=== PATIENT | male | born 1975 | race Caucasian/White ===

== ENCOUNTER 2018-02-24 06:41 | Day surgery (SDC) | payer OTHER, SELFPAY ==
--- NOTE | 2018-02-24 | PATH_ITS ---
[facility] Accession Number: [id number] . 01 Material submitted: . ESOPHAGEAL STRICTURE . 02 Diagnosis: Esophagus, Stricture, Biopsy: Squamocolumnar junctinal mucosa with reflux-related changes. Negative for intestinal metaplasia by alcian blue stain. Intraepithelial eosinophils are not increased. Negative for dysplasia and malignancy. [facility]/02/28/2018 . 02 Electronically signed: . Debby Johnson MD, Pathologist NPI- [id number] . 01 Gross description: . Received one formalin-filled container, labeled with the patient's name, labeled esophageal stricture. The specimen consists of three 0.1-0.3 cm portions of tissue, entirely submitted in one cassette. ([id number]) /FRR . 02 Microscopic: . An AB/PAS stain was performed to evaluate for intestinal metaplasia and is negative. A control stain showed appropriate reactivity. . 02 Pathologist provided ICD-10: K21.0 . 02 CPT . 936619, 312393 Performed at: 01 [facility] [address] [place] [address], [place], [place] [id number] MD Salty Joseph MD Phone: [phone] Performed at: 02 [facility] [address] [place], [place] [id number] MD Parker Kim MD Phone: [phone]
[2018-02-24 07:05] VITALS: BP 124/83; PULSE 64; RESP 15; TEMP 36.3; O2SAT 99; BMI 26.0
[2018-02-24] MEDS: SODIUM CHLORIDE 0.9% 1,000 ML 200 ML IV (07:30)
--- NOTE | 2018-02-24 08:09 | PM.PREOP ---
Pre-operative Note Interval Note Pre-op Check: History & Physical Reviewed by Physician and Exam Performed ASA Class (for procedural sedation): I
[2018-02-24] MEDS: TETRACAINE/BENZOCAINE/BUTAMBEN (CETACAINE) BOTTLE 1 SPRAY TOP (08:13)
[2018-02-24] MEDS: LIDOCAINE 4% SOLN 50 ML 20 ML TOP (08:14)
--- NOTE | 2018-02-24 08:16 | SUR.OPER ---
to endo from opd via cart respirations unlabored iv patent positioned per self for procudure
[2018-02-24] MEDS: fentaNYL 250 MCG/5 ML INJ 150 MCG IV (08:41)
[2018-02-24] MEDS: MIDAZOLAM 5 MG/5 ML VIAL 4 MG IV (08:41)
--- NOTE | 2018-02-24 08:41 | PM.OP.ENDO ---
Operative Date/Time/Diagnoses - Date of procedure: 02/24/18 Time of procedure: 08:41 Pre-op diagnosis: Dysphagia. History of stricture Post-op diagnosis: same (Stricture at GE junction at 39 cm) Procedure & Clinicians Study performed: EGD with through the scope balloon dilatation and cold biopsy Same procedure as scheduled: Yes Indications: Dysphagia recurrence Procedure Notes SCOAP/Timeout: Performed Procedure in detail: The patient is placed in left lateral decubitus position after having topical anesthetic applied was oropharynx. Bite block was inserted and he was sedated using fentanyl and Versed in a stepwise fashion directed by the surgeon. Scope was advanced through the bite block into the esophagus. The esophagus was normal until I reached the area of the GE junction where there was a stricture. However the scope passed through it without difficulty. The stomach insufflated well. There were no lesions in the body and antrum. The pyloric channel was narrowed. I was able to pass the scope through it and advanced to the 4th part of the duodenum. The duodenum was unremarkable. The scope was brought back into the stomach and retroflexed. The proximal stomach was normal except for a hiatal hernia. The scope was brought up into the area of the stricture. Red tongues of tissue were noted to come above the GE junction suggestive of Rolle's esophagus. The stricture was biopsied and tongues of red tissue were also biopsied. The stricture was then dilated. At 15 mm diameter the balloon just held the sides. He was dilated to 16.5 mm diameter. The balloon was let down and removed. Air was suctioned from the stomach and the scope was removed. There was no obvious tear. The scope was removed the patient tolerated the procedure well. Scope withdrawal time: Not applicable Sedation minutes: 12 Findings: hiatal hernia, stricture and other findings (Possible Rolle's) Recommendations: Other recommendation (EGD for symptoms. If Rolle's esophagus present 1 year.) Plan for aftercare: Follow-up by letter Disposition: PACU
[2018-02-24 08:43] VITALS: BP 118/85; PULSE 66; RESP 10; TEMP 36.6; O2SAT 95
[2018-02-24 08:48] VITALS: BP 121/86; PULSE 65; RESP 8; O2SAT 97
[2018-02-24 08:53] VITALS: BP 139/88; PULSE 70; RESP 10; O2SAT 99
[2018-02-24 08:57] VITALS: BP 117/87; PULSE 67; RESP 10; TEMP 36.8; O2SAT 98
[2018-02-24 09:15] VITALS: BP 115/84; PULSE 70; RESP 20; TEMP 36.3; O2SAT 100
== END 2018-02-24 09:15 | disposition home or self-care (01) ==
PROVIDERS: PCP Family Medicine; Visit Provider Specialist
PROC: 0DJ08ZZ Inspection of Upper Intestinal Tract, Via Natural or Artificial Opening Endoscopic (ICD-10-PCS; CPT 43235; principal; 2018-02-24 07:45)
DX: K21.0 Gastro-esophageal reflux disease with esophagitis (principal); K22.2 Esophageal obstruction; K44.9 Diaphragmatic hernia without obstruction or gangrene
CPT/HCPCS: 43249; 43239; 43245; 99152; J2250; J3010

== ENCOUNTER → 2019-01-11 09:40 | Outpatient (CLI) | payer OTHER, SELFPAY ==
[2019-01-11 10:17] LABS: Add Manual Diff / Slide Review NO; Basophils Absolute Auto 100 /uL (0-100); Eosinophils Absolute Auto 400 /uL (0-450); Eosinophils Percent Auto 8.2 % (2-4); Hematocrit 44.4 % (41-53); Hemoglobin 15.1 g/dL (13.5-17.5); Lymphocytes Absolute Auto 1900 /uL (1100-4500); Mean Corpuscular HGB Conc 33.9 % (30-36); Mean Corpuscular Hemoglobin 28.9 PG (26-34); Mean Corpuscular Volume 85.3 fL (80-100); Monocytes Absolute Auto 400 /uL (0-900); Monocytes Percent Auto 7.8 % (3-14); Neutrophils Absolute Auto 2600 /uL (1500-7000); Platelet Count 260 X10^3/uL (150-400); Red Blood Cell Count 5.21 X10^6/uL (4.5-5.9); Red Cell Distribution Width 13.1 % (11.6-14.8); White Blood Cell Count 5.3 X10^3/uL (4.5-11.0)
[2019-01-11 10:56] LABS: Alanine Aminotransferase 32 IU/L (21-72); Albumin 4.7 g/dL (3.5-5.0); Albumin Globulin Ratio 1.5 (1.0-2.8); Alkaline Phosphatase 81 U/L (38-126); Aspartate Aminotransferase 34 IU/L (17-59); Bilirubin Total 0.5 mg/dL (0.2-1.3); Blood Urea Nitrogen 9 mg/dL (9-20); Carbon Dioxide 29 mmol/L (22-32); Chloride 103 mmol/L (98-107); Cholesterol 143 mg/dL (140-199); Estimated Glomerular Filt Rate > 60.0 mL/min (>60); Globulin 3.2 g/dL (1.7-4.1); Glucose 93 mg/dL (70-100); HDL Cholesterol 59 mg/dL (40-60); HEMOLYSIS < 15 (0-50); LDL Cholesterol Calculated 72 mg/dL (<100); Potassium 4.5 mmol/L (3.4-5.1); Sodium 140 mmol/L (137-145); Total Protein 7.9 g/dL (6.3-8.2); Triglycerides 62 mg/dL (35-150)
[2019-01-11 11:18] LABS: Thyroid Stimulating Hormone 1.21 uIU/mL (0.47-4.68)
== END ==
PROVIDERS: PCP Family Medicine; Visit Provider Family Medicine
DX: G47.30 Sleep apnea, unspecified (principal)
CPT/HCPCS: 36415; 80053; 80061; 84443; 85025

== ENCOUNTER 2019-03-16 06:32 | Day surgery (SDC) | payer OTHER, SELFPAY ==
--- NOTE | 2019-03-16 | PATH_ITS ---
[facility] Accession Number: [id number] . 01 Material submitted: . esophagus, E-G Junction - GE JUNCTION BIOPSIES . 02 Diagnosis: Gastroesophageal Junction, Biopsies: Squamocolumnar junctional mucosa with focal specialized intestinal metaplasia; please see comment. Negative for dysplasia and malignancy. [facility]/03/19/2019 . 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 . 02 Electronically signed: . Sterling Willoughby MD, PhD, Pathologist NPI- [id number] . 01 Gross description: . GE JUNCTION BIOPSIES: Received in formalin are 3 fragment(s) of wells, soft tissue measuring 0.1 x 0.1 x 0.1 cm to 0.2 x 0.2 x 0.1 cm which is entirely submitted and submitted entirely in 1 cassette(s) /DMC /DMC . 02 Pathologist provided ICD-10: K22.70 . 02 CPT . 479112 Performed at: 01 [facility] [address] [place] [address], [place], [place] [id number] MD Salty Joseph MD Phone: [phone] Performed at: 02 [facility] [address] [place], [place] [id number] MD Debby Johnson MD Phone: [phone]
[2019-03-16 07:10] VITALS: BP 139/83; PULSE 90; RESP 16; TEMP 36.5; O2SAT 98; BMI 24.5
[2019-03-16] MEDS: SODIUM CHLORIDE 0.9% 1,000 ML 150 ML IV (07:12)
--- NOTE | 2019-03-16 07:57 | PM.HP.1 ---
History of Present Illness Date Patient Seen: 03/16/19 Time Patient Seen: 07:57 Chief complaint: [id number] Narrative: The patient is a gentleman who had an EGD and dilatation about a year ago. Several months later began having sticking again of steak and bread and the symptoms are getting worse. He is here for re-evaluation. Patient History Social History household members: spouse Smoking Status: Never smoker (Chew tobacco.) Family & Social History Social History: household members spouse Tobacco & Substance use: Smoking Status Never smoker Meds Home Medications Medication Instructions Recorded Confirmed Type cetirizine 10 mg capsule 10 mg PO DAILY #90 cap 01/11/19 03/16/19 Rx omeprazole 20 mg capsule,delayed 20 mg PO QDAY #90 cap 01/11/19 03/16/19 Rx release Allergies Allergy/AdvReac Type Severity Reaction Status Date / Time No Known Drug Allergies Allergy Verified 02/28/19 10:51 Review of Systems Review of Systems All systems reviewed & are unremarkable except as noted in HPI and below Gastrointestinal Comments: Has cage in reflux symptoms Exam Vital Signs (past 8 hours): - 03/16/19 07:10 Temperature 97.7 F Pulse Rate 90 Respiratory Rate 16 Blood Pressure 139/83 Pulse Oximetry 98 Oxygen Delivery Method Room Air Narrative Exam Narrative: Pleasant cooperative patient no apparent distress. Lungs are clear to auscultation. No rales or rhonchi. Heart regular rate and rhythm no murmur gallop. Abdomen is soft nontender without mass. No obvious hernias. Patient is alert and oriented x3. Assessment & Plan Assessment & Plan narrative: The patient for an EGD and possible dilatation. I have discussed the procedure with them. Risks of bleeding, perforation which would necessitate major operation, All questions were answered. They wished to proceed.
--- NOTE | 2019-03-16 07:59 | PM.PREOP ---
Pre-operative Note Interval Note History & Physical reviewed/Exam performed by Physician: Yes Changes to H&P: No ASA Class (for procedural sedation): I
[2019-03-16] MEDS: TETRACAINE/BENZOCAINE/BUTAMBEN (CETACAINE) BOTTLE 1 SPRAY TOP (08:04)
[2019-03-16] MEDS: LIDOCAINE 4% SOLN 50 ML 20 ML TOP (08:04)
[2019-03-16] MEDS: MIDAZOLAM 5 MG/5 ML VIAL IV (08:25)
[2019-03-16] MEDS: fentaNYL 250 MCG/5 ML INJ IV (08:25)
--- NOTE | 2019-03-16 08:25 | PM.OP.ENDO ---
Operative Date/Time/Diagnoses Date of procedure: 03/16/19 Time of procedure: 08:25 Pre-op diagnosis: Dysphagia. History of esophageal stricture Post-op diagnosis: same (Distal esophageal stricture. Dilated to 18 mm diameter) Procedure & Clinicians Study performed: EGD with through the scope balloon dilatation Same procedure as scheduled: Yes Indications: Dysphagia Surgeon: Kulwinder Reynaga Procedure Notes SCOAP/Timeout: Performed Procedure in detail: The patient had topical anesthetic applied to oropharynx. He was placed in left lateral decubitus position and underwent IV sedation directed by the surgeon consisting of fentanyl and Versed. A bite block was inserted and the scope was advanced through it into the esophagus. The esophagus was unremarkable except at the GE junction where there was narrowing. GE junction was noted at 39 cm from the incisors. The stomach insufflated well. There were no lesions seen in the body, antrum or at the incisura. The pyloric channel was narrowed but patent. The duodenum was unremarkable to the 4th part. The scope was brought back into the stomach and retroflexed. The proximal stomach normal in appearance. No evidence of a hiatal hernia.. The scope was straightened and brought out through the esophagus again. Biopsies were taken at the GE junction where the narrowing occurred and then a balloon catheter was passed through the scope. The stricture was dilated sequentially to 18 mm diameter. No tears were seen. No other lesions were seen. The scope was removed and the patient tolerated the procedure well. Scope withdrawal time: Not applicable Sedation minutes: 15 Findings: other findings (Stricture of the distal esophagus) Specimen(s): other (Biopsies of the GE junction) Complications: none Recommendations: Continue medication(s) (Omeprazole) and Other recommendation (Call if symptoms recur) Follow up: weeks (2-3) Disposition: PACU
[2019-03-16 08:27] VITALS: BP 139/89; PULSE 91; RESP 21; O2SAT 95
[2019-03-16 08:32] VITALS: BP 117/88; PULSE 76; RESP 11; O2SAT 93
[2019-03-16 08:37] VITALS: BP 113/69; PULSE 71; RESP 10; O2SAT 94
[2019-03-16 08:42] VITALS: BP 107/71; PULSE 71; RESP 10; O2SAT 96
[2019-03-16 09:10] VITALS: BP 111/74; PULSE 74; RESP 12; TEMP 37.1; O2SAT 98
== END 2019-03-16 09:22 | disposition home or self-care (01) ==
PROVIDERS: PCP Family Medicine; Visit Provider Specialist
PROC: 0DJ08ZZ Inspection of Upper Intestinal Tract, Via Natural or Artificial Opening Endoscopic (ICD-10-PCS; CPT 43235; principal; 2019-03-16 07:45)
DX: K22.2 Esophageal obstruction (principal)
CPT/HCPCS: 43249; 43239; 99152; J2250; J3010

== ENCOUNTER → 2022-11-11 10:29 | Outpatient (CLI) | payer OTHER, SELFPAY ==
[2022-11-11 11:38] LABS: Add Manual Diff / Slide Review NO; Basophils Absolute Auto 0 /uL (0-100); Eosinophils Absolute Auto 300 /uL (0-450); Eosinophils Percent Auto 6.4 % (2-4); Hematocrit 40.7 % (41-53); Hemoglobin 13.9 g/dL (13.5-17.5); Lymphocytes Absolute Auto 1500 /uL (1100-4500); Lymphocytes Percent Auto 36.9 % (25-40); Mean Corpuscular HGB Conc 34.2 % (30-36); Mean Corpuscular Volume 84.8 fL (80-100); Monocytes Absolute Auto 300 /uL (0-900); Monocytes Percent Auto 7.1 % (3-14); Neutrophils Absolute Auto 1900 /uL (1500-7000); Neutrophils Percent Auto 48.6 % (50-75); Platelet Count 232 X10^3/uL (150-400); Red Cell Distribution Width 14.1 % (11.6-14.8)
[2022-11-11 12:12] LABS: Alanine Aminotransferase 34 IU/L (<50); Albumin 4.2 g/dL (3.5-5.0); Albumin Globulin Ratio 1.3 (1.0-2.8); Alkaline Phosphatase 83 U/L (38-126); Aspartate Aminotransferase 32 IU/L (17-59); BUN Creatinine Ratio 9.1 (6-22); Bilirubin Total 0.5 mg/dL (0.2-1.3); Blood Urea Nitrogen 8 mg/dL (9-20); Calcium 8.9 mg/dL (8.4-10.2); Carbon Dioxide 28 mmol/L (22-32); Chloride 101 mmol/L (98-107); Cholesterol 166 mg/dL (140-199); Estimated Glomerular Filt Rate > 60 mL/min (>60); Globulin 3.3 g/dL (1.7-4.1); Glucose 90 mg/dL (70-100); HDL Cholesterol 61 mg/dL (40-60); HEMOLYSIS < 15 (0-50); LDL Cholesterol Calculated 86 mg/dL (<100); Potassium 4.4 mmol/L (3.4-5.1); Sodium 138 mmol/L (137-145); Total Protein 7.5 g/dL (6.3-8.2); Triglycerides 94 mg/dL (35-150)
[2022-11-11 12:36] LABS: TSH w/ Reflex to FT4 1.13 uIU/mL (0.47-4.68)
[2022-11-22 06:36] LABS: Percent Free Testosterone 2.09 % (1.50-4.20); Testosterone Free 8.69 ng/dL (5.00-21.00); Testosterone Total 415.7 ng/dL (264.0-916.0)
== END ==
PROVIDERS: PCP Family Medicine; Referring Provider Family Medicine; Visit Provider Family Medicine
DX: G47.30 Sleep apnea, unspecified (principal); K22.2 Esophageal obstruction; R53.83 Other fatigue
CPT/HCPCS: 36415; 80053; 80061; 84402; 84403; 84443; 85025

== ENCOUNTER → 2024-04-10 16:01 | Outpatient (CLI) | payer OTHER, SELFPAY ==
--- NOTE | 2024-04-10 16:02 | DI.MRI.S_ITS ---
PROCEDURE: MR SHOULDER LT WO CON INDICATIONS: Injury 2 months ago with popping, pain and restricted ROM TECHNIQUE: Noncontrast oblique coronal T2 fast spin echo with fat saturation, oblique sagittal T1 spin echo and T2 fast spin echo with fat saturation, axial T1 spin echo and T2 fast spin echo with fat saturation through the shoulder. COMPARISON: None. FINDINGS: Image quality: Excellent. Rotator cuff: Mild supraspinatus tendinosis with low-grade bursal surface fraying but no significant tearing. Infraspinatus, teres minor, and subscapularis tendons are intact. The rotator cuff musculature is normal in bulk. Bones and bursae: No acute trabecular bone injury or fracture. Mild surface cartilage irregularity in the glenohumeral joint. Mild degenerative changes at the acromioclavicular joint with subchondral cystic changes and tiny marginal osteophytes. Trace subacromial/subdeltoid bursal fluid. No significant glenohumeral effusion. Capsule and soft tissues: Nondisplaced tearing of the posterior inferior labrum as well as the posterior inferior labrum, which may communicate. There is also nondisplaced tearing at the superior to posterior superior labrum. Proximal biceps long head tendon demonstrates normal appearance and location. Mild partial effacement of the fat in the rotator interval. The there is thickening and intermediate signal intensity within the anterior band of the inferior glenohumeral ligament. IMPRESSION: 1. Nondisplaced tearing of the superior to posterior superior labrum, posterior inferior labrum, and anterior inferior labrum. A communication between these tears is suspected although not definitely visualized. 2. Mild supraspinatus tendinosis with low-grade bursal surface fraying but no significant tendon tearing. 3. Mild acromioclavicular joint osteoarthrosis. Minimal degenerative changes in the glenohumeral joint. 4. Partial effacement of the rotator interval fat and mild thickening and increased signal intensity within the inferior glenohumeral ligament are nonspecific, but can be seen in the setting of the clinical syndrome of adhesive capsulitis. Approved by: Donato Stevenson M.D. on 04/11/2024 at 9:43
== END ==
PROVIDERS: PCP Family Medicine; Referring Provider Physician Assistant; Visit Provider Physician Assistant
DX: S43.432A Superior glenoid labrum lesion of left shoulder, initial encounter (principal); M19.012 Primary osteoarthritis, left shoulder; M75.100 Unspecified rotator cuff tear or rupture of unspecified shoulder, not specified as traumatic
CPT/HCPCS: 73221